=== PATIENT | female | born 1950 | race Caucasian/White ===

== ENCOUNTER → 2021-12-17 | Outpatient (CLI) | payer MEDICARE ==
--- NOTE | 2021-12-22 09:08 | MM ---
Reason for exam: clinical finding. Last mammogram was performed 2 years and 2 months ago. History: Patient is postmenopausal. Family history of breast cancer in mother and breast cancer in paternal aunt. Benign excisional biopsy of the right breast. Took estrogen for 5 years. Physical Findings: Nurse did not find any significant physical abnormalities on exam. MG 3D Diag Mammo W/Cad PERCY Bilateral CC and MLO view(s) were taken. Prior study comparison: October 10, 2019, mammogram, performed at [facility]. August 09, 2017, mammogram, performed at [facility]. March 27, 2015, mammogram, performed at [facility]. The breast tissue is heterogeneously dense. This may lower the sensitivity of mammography. Stable benign calcifications. Stable post operative distortion right breast. These results were verbally communicated with the patient on 12/22/21. ASSESSMENT: Incomplete: need additional imaging evaluation, BI-RAD 0 RECOMMENDATION: Ultrasound of both breasts.
--- NOTE | 2021-12-22 09:09 | USB ---
Reason for exam: additional evaluation requested from abnormal screening. History: Patient is postmenopausal. Family history of breast cancer in mother and breast cancer in paternal aunt. Benign excisional biopsy of the right breast. Took estrogen for 5 years. US Breast BILAT Right complete breast ultrasound includes all four quadrants, the retroareolar region and axilla. Finding demonstrates no cystic or solid lesion seen. Left complete breast ultrasound includes all four quadrants, the retroareolar region and axilla. Finding demonstrates no cystic or solid lesion seen. These results were verbally communicated with the patient on 12/17/21. ASSESSMENT: Negative, BI-RAD 1 RECOMMENDATION: Routine screening mammogram of both breasts in 1 year.
== END | disposition home or self-care (01) ==
LOC: RADMAMWWP 09:06
PROVIDERS: ATTEND Obstetrics & Gynecology
DX: N64.4 Mastodynia (principal); R92.8 Other abnormal and inconclusive findings on diagnostic imaging of breast; Z78.0 Asymptomatic menopausal state; Z80.3 Family history of malignant neoplasm of breast
CPT/HCPCS: 77066; 76641; G0279; 77062

== ENCOUNTER 2025-01-02 05:57 | Day surgery (SDC) | payer MEDICARE ==
[~2025-01-02 05:57] MED LIST: LIDOCAINE 1% (10MG/ML) FOR IV START INTRADERMA PRN
[2025-01-02] MEDS: LACTATED RINGERS 1,000 ML IV SCH (06:54)
[2025-01-02] MEDS: IV FLUID CONTINUATION 1,000 ML IV ONE (06:55)
[2025-01-02 06:57] VITALS: TEMP 98
[2025-01-02] MEDS ORDERED: PROPOFOL 10 MG/ML 20 ML VIAL IV ONE (06:58)
--- NOTE | 2025-01-02 07:27 | P.PCN ---
Date of Procedure: 01/02/25 Procedure(s) Performed: Brief history: Patient is a pleasant 74-year-old white female scheduled for an elective upper endoscopy as well as colonoscopy as a part of evaluation of abdominal pain, intermittent nausea vomiting and chronic diarrhea of several years duration. She lost 30 pounds in the last 6 months Procedure performed: Esophagogastroduodenoscopy with biopsy Colonoscopy with biopsy Preoperative diagnosis: Abdominal pain, intermittent nausea vomiting Chronic diarrhea and progressive weight loss Anesthesia: [facility] Procedure: After informed consent was obtained from the patient was brought into the endoscopy unit and IV sedation was administered by anesthesia under continuous monitoring. Initially upper endoscopy was done. The Olympus GF 160 video endoscope was inserted inserted into the mouth and esophagus intubated without any difficulty and was gradually advanced into the stomach and duodenum and carefully examined. The bulb and second part of the duodenum appeared normal. Biopsies were done from the duodenum to evaluate for celiac disease. The scope was then withdrawn into the stomach adequately insufflated with air and upon careful examination the antrum had mild gastritis and biopsies were done from this area. Mucosa of the body, cardia and fundus appeared normal. The scope was then withdrawn into the esophagus. The GE junction was located at 40 cm to the incisors. It appeared regular with no erythema erosions or ulcerations. Rest of the esophagus appeared normal. Patient tolerated the procedure well. At this time the patient continued to remain sedation. Initial digital rectal examination was normal. Olympus CF 160 video colonoscope was then inserted into the rectum and gradually advanced to the cecum without any difficulty. Careful examination was performed as the scope was gradually being withdrawn. The prep was excellent. Terminal ileum was intubated and 20 cm visualized and appeared normal. The cecum, ascending colon, transverse colon, descending colon, sigmoid colon and rectum appeared normal. The distal sigmoid colon there was a 3 mm polyp that was removed by cold biopsy. And the biopsies were done from the ascending and descending colon to rule out microscopic/collagenous colitis. Retroflexion was performed in the rectum and no lesions were noted. Patient tolerated the procedure well. Impression: 1. Upper endoscopy revealed mild antral gastritis but no evidence of esophagitis or peptic ulcer disease 2. Colonoscopy revealed 3 mm distal sigmoid colon polyp status post cold biopsy and the rest of the colon appeared normal Recommendations: Findings of this examination were discussed with the patient as well as her family. She was advised to follow-up with the biopsy results. She will be seen in the office in 2 weeks. If the biopsy reveals adenoma she can have repeat colonoscopy in 5 years.
[2025-01-02 07:55] VITALS: BP 128/71; PULSE 67; RESP 17
== END 2025-01-02 08:18 | disposition home or self-care (01) ==
LOC: ORWHC2ENDO 05:57
PROVIDERS: ATTEND Internal Medicine Gastroenterology
DX: K29.50 Unspecified chronic gastritis without bleeding (principal); K31.A0 Gastric intestinal metaplasia, unspecified; K52.9 Noninfective gastroenteritis and colitis, unspecified; K63.5 Polyp of colon; I10 Essential (primary) hypertension; E78.5 Hyperlipidemia, unspecified; J45.909 Unspecified asthma, uncomplicated; G47.33 Obstructive sleep apnea (adult) (pediatric); G43.909 Migraine, unspecified, not intractable, without status migrainosus; K21.9 Gastro-esophageal reflux disease without esophagitis; F17.200 Nicotine dependence, unspecified, uncomplicated; Z79.899 Other long term (current) drug therapy; Z91.048 Other nonmedicinal substance allergy status; Z88.4 Allergy status to anesthetic agent; Z79.51 Long term (current) use of inhaled steroids
CPT/HCPCS: 88305; 45380; 43239; J2704

== ENCOUNTER → 2025-01-26 | Outpatient (CLI) | payer MEDICARE ==
[2025-01-26 12:38] LABS: African American GFR (CKD) 74 (>60 ml/min/1.73 sqM); Blood Urea Nitrogen 18 mg/dL (7-17); Non-African American GFR(CKD) 64 (>60 ml/min/1.73 sqM)
--- NOTE | 2025-01-26 14:26 | CT ---
EXAMINATION TYPE: CT abdomen pelvis wo/w con CT DLP: 1500 mGycm, Automated exposure control for dose reduction was used. DATE OF EXAM: 01/26/2025 2:07 PM COMPARISON: None CLINICAL INDICATION:Female, 74 years old with history of R63.4 ABNORMAL WEIGHT LOSS; Abnormal and une xplained weight loss of 50 lbs TECHNIQUE: Standard CT of the abdomen and pelvis before and after the uneventful administration of 100 mL of Isovue-370 intravenously. Oral contrast was administered. Coronal and sagittal reformats we re performed. FINDINGS: LOWER CHEST: Minimal bibasilar subsegmental atelectasis. ABDOMEN LIVER: Unremarkable GALLBLADDER AND BILE DUCTS: The gallbladder is surgically absent. No biliary ductal dilatation. PANCREAS: Unremarkable. SPLEEN: Unremarkable. ADRENAL GLANDS: Unremarkable. KIDNEYS AND URETERS: No evidence of hydronephrosis. No right renal calculus. Nonobstructive left kelsy l 4 mm calculus. The kidneys enhance symmetrically. Contrast is demonstrated within both collecting s ystems and proximal ureters on delayed phase. Multiple bilateral subcentimeter renal cysts. No follow -up. PELVIS BLADDER: Incompletely distended but grossly unremarkable. REPRODUCTIVE: The uterus is surgically absent. ABDOMEN & PELVIS STOMACH AND BOWEL: Residual enteric contrast within the distal esophagus. Mild amount of stool is pr esent within the colon. Enteric contrast reaches the ascending colon. The appendix is not identified. No evidence of bowel obstruction. No focal bowel wall thickening or surrounding inflammatory changes . PERITONEUM: No evidence of pneumoperitoneum or free fluid. VASCULATURE: No evidence of aortic aneurysm. Tortuosity of the abdominal aorta. Pelvic phleboliths. MUSCULOSKELETAL: No acute osseous abnormalities . Postsurgical changes of the lumbosacral spine with bilateral pedicular screws and rods involving L2-L5 with laminectomy changes. Multilevel degenerative disc disease. Marked S-shaped scoliotic curvature of the visualized thoracolumbar spine. LYMPH NODES: No evidence for lymphadenopathy. SOFT TISSUE/ABDOMINAL WALL: Power pack identified within the left gluteal subcutaneous tissues with s timulator leads entering the spinal canal at T12-L1 interspace. They coursed superiorly within the sp inal canal. Additional stimulator lead along the right iliac crest. Tiny fat filled umbilical hernia. IMPRESSION: 1. No acute abdominal/pelvic process. 2. Nonobstructive left renal calculus. 3. Postsurgical changes with scoliotic curvature of the thoracolumbar spine. 4. Residual contrast within the distal esophagus which can be seen with reflux. [facility], , 01/26/2025 2:24 PM
[2025-01-27 07:47] LABS: Cryptosporidium Antigen Negative (Negative)
== END | disposition home or self-care (01) ==
LOC: RADCTMAIN 11:46
PROVIDERS: ATTEND Internal Medicine Gastroenterology
DX: N20.0 Calculus of kidney (principal); R63.4 Abnormal weight loss; K52.9 Noninfective gastroenteritis and colitis, unspecified; M41.85 Other forms of scoliosis, thoracolumbar region
CPT/HCPCS: 82656; 82565; 84520; 83993; 87045; 87329; 87328; 83630; 87046; 74178; 36415; Q9967